=== PATIENT | female | born 1955 | race Caucasian/White ===

== ENCOUNTER → 2019-08-25 | Outpatient (CLI) | payer MEDICARE ==
--- NOTE | 2019-08-25 12:08 | RAD ---
EXAM: Dual energy x-ray absorptiometry (DEXA). HISTORY: Postmenopausal female presents for osteoporosis screening. COMPARISON: None. TECHNIQUE: Dual energy x-ray absorptiometry of the lumbar spine and right hip was performed. Calculation of bone mineral density based on standard deviations above or below the expected young adult normal value (T-score) was completed. FINDINGS: The average bone mineral density in the 1st through 4th lumbar vertebrae is 1.110 g/cmxcm, corresponding with a T-score of -0.6. The average total bone mineral density in the right hip is 0.930 g/cmxcm, corresponding with a T-score of -0.2. IMPRESSION: Normal bone mineral density. Note: Definitions established by the World Health Organization: 1. Normal: T-score is -1.0 or above. 2. Osteopenia: T-score is between -1.0 and -2.5 . 3. Osteoporosis: T-score is -2.5 or below. Electronically signed by: Gale Zapien MD (08/25/2019 12:04 PM) [facility]
--- NOTE | 2019-08-25 12:08 | RAD ---
EXAM: Pelvis and left hip, 3 views. HISTORY: Pain. COMPARISON: None. FINDINGS: A frontal view of the pelvis and frontal and frog-leg views of the left hip are obtained. There is no fracture, dislocation or subluxation. The femoral heads are normal in configuration. IMPRESSION: No acute osseous finding. Electronically signed by: Gale Zapien MD (08/25/2019 12:05 PM) [facility]
== END | disposition home or self-care (01) ==
LOC: DXRAD 10:59
PROVIDERS: ATTEND Physician Assistant
DX: Z13.820 Encounter for screening for osteoporosis (principal); M25.552 Pain in left hip; Z78.0 Asymptomatic menopausal state
CPT/HCPCS: 73502; 77080

== ENCOUNTER → 2020-10-16 | Outpatient (CLI) | payer MEDICARE ==
--- NOTE | 2020-10-17 16:22 | RAD ---
EXAM: Bilateral digital screening mammogram with tomosynthesis. HISTORY: 65-year-old female presents for screening mammography. TECHNIQUE: Full-field digital craniocaudal and mediolateral oblique 2D and 3D tomosynthesis images of both breasts are obtained for evaluation. Computer aided detection was applied. COMPARISON: 07/08/2019 BREAST PARENCHYMAL DENSITY: Level B - Scattered fibroglandular densities. FINDINGS: There is no new suspicious mass, microcalcification or region of architectural distortion. There is a stable circumscribed nodule within the 3:00 position of the left breast. The long-term sta bility and imaging appearance favor an intramammary lymph node. IMPRESSION: BI-RADS Category 2: Benign finding(s). RECOMMENDATION: Annual mammography is recommended. If your mammogram demonstrates that you have dense breast tissue, which could hide abnormalities, and if you have other risk factors for breast cancer that have been identified, you might benefit from s upplemental screening tests that may be suggested by your ordering physician. Dense breast tissue, i n and of itself, is a relatively common condition. This information is not provided to cause undue c oncern, but rather to raise your awareness and to promote discussion with your physician regarding th e presence of other risk factors, in addition to dense breast tissue. A report of your mammography re sults will be sent to you and your physician. You should contact your physician if you have any ques tions or concerns regarding this report. Mammography is a sensitive method for finding small breast cancers, but it does not detect them all a nd is not a substitute for careful clinical examination. A negative mammogram does not negate a clin ically suspicious finding and should not result in delay in biopsying a clinically suspicious abnorma lity. PQRS compliance statement - Patient information was entered into a reminder system with a target due date for the next mammogram. "Our facility is accredited by the [employer] Mammography Program." Electronically signed by: Gale Zapien MD (10/17/2020 4:20 PM) [id number]
== END ==
LOC: MAMMO 15:10
PROVIDERS: ATTEND Family Medicine
DX: Z12.31 Encounter for screening mammogram for malignant neoplasm of breast (principal)
CPT/HCPCS: 77063; 77067

== ENCOUNTER → 2021-12-12 | Outpatient (CLI) | payer MEDICARE ==
[2021-05-29 12:38] VITALS: BP 128/68
--- NOTE | 2021-12-12 13:45 | RAD ---
INDICATION: 66 years of age asymptomatic female patient presents for screening mammography. Family hi story breast cancer in sister, paternal aunt, and paternal grandmother, ages unspecified TECHNIQUE: Full field craniocaudal and mediolateral oblique images of both breasts were obtained usi ng digital technique with tomosynthesis. COMPARISON: Prior mammographic imaging dating back to 10/16/2020. BREAST COMPOSITION: FINDINGS: The parenchymal pattern appears stable. Benign calcifications are present. No suspicious masses, microcalcifications or architectural distortion is present to suggest malignanc y in either breast. The visualized axillae are unremarkable. IMPRESSION: No mammographic evidence of malignancy. RECOMMENDATION: Annual screening mammography is recommended, unless clinically indicated sooner based on symptoms or change in physical exam. BIRADS 1: NEGATIVE Patient information is entered into the reminder system with a target due date for the next screening mammogram. Mammography is the most sensitive method for finding small breast cancers, but it does not detect the m all and is not a substitute for careful clinical examination. A negative mammogram does not negate a clinically suspicious finding and should not result in delay in biopsying a clinically suspicious a bnormality. "Our facility is accredited by the [employer] Mammography Program." Electronically signed by: Joe Benitez DO (12/12/2021 1:43 PM) [id number]
== END ==
LOC: MAMMO 11:11
PROVIDERS: ATTEND Physician Assistant
DX: Z12.31 Encounter for screening mammogram for malignant neoplasm of breast (principal)
CPT/HCPCS: 77063; 77067

== ENCOUNTER 2021-12-17 07:27 | Emergency (ER) | payer MEDICARE ==
[~2021-12-17] VITALS: Ht 170.2 cm; Wt 76.8 kg
--- NOTE | 2021-12-17 07:49 | EKG ---
[address] [address] Test Date: 2021-12-17 Test Time: 07:37:43 Pat Name: GABRIEL SOTO Department: Room: Gender: F [employer] Operator: EMMANUEL : 1955 Requested By: ISH PABLO Order Number: [id number] Reading MD: Gurwinder Shearer Measurements Intervals [place] Rate: 66 P: 64 TN: 192 QRS: -42 QRSD: 112 T: 24 QT: 464 QTc: 488 Interpretive Statements SINUS RHYTHM LEFT ATRIAL ABNORMALITY ABNORMAL LEFT AXIS DEVIATION LEFT ANTERIOR FASCICULAR BLOCK PROLONGED QT ABNORMAL ECG RI6.02 No previous ECG available for comparison Electronically Signed On 12-18-2021 17:12:54 CDT by Gurwinder Shearer
--- NOTE | 2021-12-17 07:59 | PHYS DOC ---
Past History Past Surgical History: Other Additional Past Surgical Histo: SKIN CANCERS REMOVED Adult General Chief Complaint Chief Complaint: ALTERED MENTAL STATUS HPI HPI Patient brought by EMS after being found lying on the floor by her this morning. Patient minimally responsive to painful stimuli per EMS. reports patient was doing a bowel prep for colonoscopy this morning at 830. Patient did vomit preparation material 1 time yesterday. Patient is noted to have an abrasion and mild contusion above the left eye. Has been denies any other recent illnesses no fevers no chills no cough. On arrival patient is moving all extremities in response to pain, does open her eyes occasionally but is unable to provide any history. No obvious facial droop noted in all extremities do seem to respond appropriately Review of Systems Review of Systems Unable to obtain secondary to clinical condition Physical Exam Physical Exam Constitutional: Well developed, well nourished, no acute distress, non-toxic appearance. [] HENT: Mild abrasion and contusion above the left eyebrow Eyes: PERRLA, EOMI, conjunctiva normal, no discharge. [] Neck: Normal range of motion, no tenderness, supple, no stridor. [] Cardiovascular:Heart rate regular rhythm, no murmur [] Lungs & Thorax: Bilateral breath sounds clear to auscultation [] Abdomen: Bowel sounds normal, soft, no tenderness, no masses, no pulsatile masses. [] Skin: Warm, dry, no erythema, no rash. [] Back: No tenderness, no CVA tenderness. [] Extremities: No tenderness, no cyanosis, no clubbing, ROM intact, no edema. [] Neurologic: Does respond and withdrawal to painful stimuli in all 4 extremities and does open her eyes with very mild sternal rub otherwise does not follow commands no obvious facial droop noted Psychologic: Affect normal, judgement normal, mood normal. [] Current Patient Data Vital Signs Vital Signs Date Time Temp Pulse Resp B/P (MAP) Pulse Ox O2 Delivery O2 Flow Rate FiO2 12/17/21 07:27 97.5 75 28 143/60 (87) 93 Room Air EKG EKG [] Normal sinus rhythm, rate 64, no ST changes no prolonged QT no QRS widening Radiology/Procedures Radiology/Procedures [] Heart Score C/O Chest Pain: N/A Risk Factors: Risk Factors: DM, Current or recent (<one month) smoker, HTN, HLP, family history of CAD, obesity. Risk Scores: Risk Factors: DM, Current or recent (<one month) smoker, HTN, HLP, family history of CAD, obesity. Course & Med Decision Making Course & Med Decision Making Patient with CT head with no acute abnormality noted. Labs with significant hyponatremia noted, also significant elevation in cardiac enzymes. Patient's EKG with no ST changes. Patient continues to have stable vital signs but continues to be significantly altered in the emergency department. Patient with IV fluids given, patient will be admitted for further treatment and evaluation. Given the significant overall findings, it is felt that patient would be best suited at a higher level of care and we will proceed with transfer to [facility]. Patient excepted by Dr. Franklyn Rivas Disclaimer Rob Disclaimer This electronic medical record was generated, in whole or in part, using a voice recognition dictation system. Departure Departure: Impression: Primary Impression: Altered mental status Additional Impressions: Hyponatremia Elevated troponin Disposition: 02 SHORT TERM HOSPITAL Condition: GUARDED Referrals: AVTAR SCHAFER PAC (PCP) Problem Qualifiers ISH PABLO MD December 17, 2021 07:59
--- NOTE | 2021-12-17 08:12 | RAD ---
PQRS Compliance Statement: One or more of the following individualized dose reduction techniques were utilized for this examinat ion: 1. Automated exposure control 2. Adjustment of the mA and/or kV according to patient size 3. Use of iterative reconstruction technique CT head without contrast 12/17/2021 8:08 AM INDICATION: Altered mental status COMPARISON: None available TECHNIQUE: Multiple axial CT images of the head were obtained from skull base through the vertex with out intravenous contrast. FINDINGS: Head: Ventricles, sulci and basal cisterns are within normal limits. There is no hydrocephalus. Barrett-white matter differentiation is normal. There is no acute intracranial hemorrhage. There is no mass, mass e ffect or midline shift. Posterior fossa is normal in appearance. Visualized portions of the orbits are normal. Paranasal sinuses are well aerated. Mastoid air cells a re well aerated. Scalp and calvaria are normal. IMPRESSION: No acute intracranial hemorrhage. Electronically signed by: Ambar Neville MD (12/17/2021 8:10 AM) [id number]
[2021-12-17 08:13] LABS: BASO % 0 % (0-3); EOS % 0 % (0-3); HEMATOCRIT 35.3 % (36.0-47.0); HEMOGLOBIN 12.4 g/dL (12.0-15.5); LYMPH # 0.5 x10^3/uL (1.0-4.8); LYMPH % 5 % (24-48); MEAN CORPUSCULAR HEMOGLOBIN 30 pg (25-35); MEAN CORPUSCULAR HGB CONC 35 g/dL (31-37); MEAN CORPUSCULAR VOLUME 85 fL (79-100); MONO # 0.3 x10^3/uL (0.0-1.1); MONO % 4 % (0-9); NEUT # 8.8 x10^3uL (1.8-7.7); NEUT % 91 % (31-73); PLATELET COUNT 245 x10^3/uL (140-400); RED BLOOD COUNT 4.15 x10^6/uL (3.50-5.40); RED CELL DISTRIBUTION WIDTH 13.3 % (11.5-14.5); WHITE BLOOD COUNT 9.7 x10^3/uL (4.0-11.0)
[2021-12-17] MEDS ORDERED: ONDANSETRON PF 4 MG/2 ML VIAL. ONE (08:14)
[2021-12-17] MEDS ORDERED: ONDANSETRON PF 4 MG/2 ML VIAL. IVP ONE (08:30)
[2021-12-17 08:33] LABS: CALCIUM 8.6 mg/dL (8.5-10.1); CREATININE 0.6 mg/dL (0.6-1.0); GFR 99.7; POTASSIUM 3.2 mmol/L (3.5-5.1)
--- NOTE | 2021-12-17 08:50 | RAD ---
AP chest. HISTORY: Altered mental status, vomiting AP view was taken of the chest. Lungs are free of infiltrates. Heart is normal in size. There is no p leural effusion. IMPRESSION: 1. No acute chest disease. Electronically signed by: Emre Child MD (12/17/2021 8:47 AM) [id number]
[2021-12-17 09:52] LABS: BARBITURATES NEG (NEG); BENZODIAZEPINES NEG (NEG); CANNABINOIDS NEG (NEG); COCAINE NEG (NEG); METHADONE NEG (NEG); OPIATES NEG (NEG); PHENCYCLIDINE NEG (NEG)
[2021-12-17 09:53] LABS: AMPHETAMINE/METHAMPHETAMINE NEG (NEG)
[2021-12-17 10:00] LABS: BACTERIA,URINE 0 /HPF (0-FEW); CLARITY,URINE CLEAR; COLOR,URINE YELLOW; GLUCOSE,URINE NEG (NEG); NITRITE,URINE NEG (NEG); UROBILINOGEN,URINE 0.2 mg/dL (0.2 mg/dL); WBC,URINE OCC /HPF (0-4)
[2021-12-17] MEDS ORDERED: IV NORMAL SALINE 1,000ML 1,000 ML IV ONE (10:00)
[2021-12-17 10:01] LABS: SQUAMOUS EPITHELIAL CELL,UR OCC /LPF
[2021-12-17 10:30] VITALS: BP 133/64
== END 2021-12-17 11:00 | disposition short-term general hospital (02) ==
LOC: ER 07:27
DX: S00.83XA Contusion of other part of head, initial encounter (principal); R41.82 Altered mental status, unspecified; E87.1 Hypo-osmolality and hyponatremia; R77.8 Other specified abnormalities of plasma proteins; Z20.822 Contact with and (suspected) exposure to COVID-19; X58.XXXA Exposure to other specified factors, initial encounter; Y93.89 Activity, other specified; Y92.89 Other specified places as the place of occurrence of the external cause; Y99.8 Other external cause status
CPT/HCPCS: 36415; 51702; 70450; 71045; 80048; 80307; 81001; 82550; 84484; 85025; 87426; 93005; 96361; 96374; 99285; C9803; J2405; J7030; U0003

== ENCOUNTER → 2022-01-01 | Outpatient (CLI) | payer MEDICARE ==
[2021-12-17 10:30] VITALS: BP 133/64
--- NOTE | 2022-01-01 17:57 | RAD ---
MR#: [id number] Date of Study: 01/01/2022 Ordering Physician: ABDIRAHMAN EASTMAN, Referring Physician: JUSTINE OBRIEN Tech: RT Siri (R) (N) APPROVED REPORT Test Type: Exercise Stress Nurse/Tech: RT Siri (R) (N) Test Indications: chest pain when taking in deep breath, dyspnea Cardiac History: none Medications: see EHR Medical History: none Resting ECG: SR Resting Heart Rate: 63 bpm Resting Blood Pressure: 128/70mmHg Pretest Chest Pain: None Nurse/Tech Notes Consent: The procedure was explained to the patient in lay terms. Informed consent was witnessed. Byron eout was entered into [employer]. History and Stress Test performed by RT Siri (Gregor) (N) POST EXERCISE Reason for Termination: Reached target heart rate, Dyspnea Target HR: Yes Max HR: 157 bpm 103% of Maximum Predicted HR: 153 bpm Exercise duration: 5:00 min:sec, 2 Stage Exercise capacity: 7METs Max Blood Pressure: 142/53mmHg INTERPRETATION Stress EKG Conclusion: The resting EKG shows a sinus rhythm with nonspecific ST-T wave changes, borde rline LAFB and a PVC. The stress EKG shows no significant ST changes from baseline but increased PVCs and some couplets. No EKG evidence of stress-induced ischemia however the patient has increased ventricular ectopy with exertion. Imaging Protocol IMAGE PROTOCOL: Rest Tc-99m/stress Tc-99m 1 day Rest: Stress: Viability: Radiopharm.Tc99m [id number] Sestamibi Dose10.7mCi 30.5mCi Duration 15min. 10min. Img Date 01/01/2022 01/01/2022 Inj-Img [id number]. 60min. Post-Injection Exercise: 1 minute Rest Admin Site:IV - Right AntecubitalAdministrator: RT Siri (Gregor)(N) Stress Admin Site: IV - Right AntecubitalAdministrator: RT Siri (Gregor)(N) STRESS DATA End Diast. Vol.103.0mlAv. Heart Rate34.0bpm End Syst. Vol.39.0mlCO Index BSA0.0L/min Myocardial Hvzc874.0gEject. Gnhmcvvq53.0% Stress Rates Pk. Fill Rate1.29EDV/secLVtime Pk. Fill 551.68msec Pk. Empty Rate1.48ESV/secLVtime Pk. Rspsx646.53msec 1/3 Pk. Fill0.01EDV/sec Stress Scores Regional WT3.00Summed WT51.00 Regional WM0.00Summed WM0.00 LV Perfusion The stress scans showed no significant defects. The rest scans showed no significant defects. Nuclear imaging shows no reversible ischemia or infarct. Wall Motion Intact LV systolic function with an ejection fraction of 62%. LV Perf. Quant 17 Seg. SSS1.00 17 Seg. SRS2.00 17 Seg. SDS1.00 Stress Defect Extent (% LAD)0.00Rest Defect Extent (% LAD)2.50Rev. Defect Extent (% LAD)0.00 Stress Defect Extent (% LCX) 0.00Rest Defect Extent (% LCX)12.50Rev. Defect Extent (% LCX)0.00 Stress Defect Extent (% RCA)0.00Rest Defect Extent (% RCA)0.00Rev. Defect Extent (% RCA)0.00 Stress Defect Extent (% MAURA)0.00Rest Defect Extent (% MAURA)5.00Rev. Defect Extent (% MAURA)0.00 Conclusion 1. Good exercise tolerance with the patient walking for 5 minutes on a Rolando protocol. 2. No EKG evidence of stress-induced ischemia although the patient has significantly increased PVCs a nd some couplets with exertion. 3. Nuclear imaging shows no reversible ischemia or infarct. 4. Intact LV systolic function with an ejection fraction of 62%. 5. Moderately low risk treadmill nuclear stress test. Signed by : Darian Soto MD Electronically Approved : 01/01/2022 17:56:40
== END ==
LOC: NM 07:39
PROVIDERS: ATTEND Internal Medicine Cardiovascular Disease
DX: R06.00 Dyspnea, unspecified (principal)
CPT/HCPCS: 78452; 93017; A9500